=== PATIENT | female | born 1960 | race Caucasian/White ===

== ENCOUNTER 2020-01-14 10:09 | Emergency (ER) | payer BC ==
[2020-01-14] MEDS ORDERED: NORMAL SALINE 1000 ML 1,000 ML IV ONE (11:57)
[2020-01-14] MEDS ORDERED: DIPH/PERTUSS(ACELL)/TETANUS VAC/PF 0.5 ML SYR (>=10YO) IM ONE (11:58)
[2020-01-14] MEDS ORDERED: CEFTRIAXONE 1 GM/D5W RTU 1 GM/50 ML RTUPB IV ONE ×2 (11:58→12:15)
[2020-01-14] MEDS ORDERED: ONDANSETRON HCL INJ/PF 4 MG/2 ML SDV IV ONE (12:01)
[2020-01-14] MEDS ORDERED: MORPHINE SULFATE 10 MG/ML INJ IV ONE (12:01)
[2020-01-14] MEDS ORDERED: LIDOCAINE 1% INJ-PF (10 MG/ML) 30 ML SDV INJ ONE (12:08)
--- NOTE | 2020-01-14 12:37 | RADIOLOGY REPORT (SQ) ---
EXAM DESCRIPTION: CT HEAD WITHOUT IMAGES COMPLETED DATE/TIME: 01/14/2020 12:19 pm REASON FOR STUDY: accidental fall/headache COMPARISON: None. TECHNIQUE: Axial images acquired through the brain without intravenous contrast. Images reviewed wi th bone, brain and subdural windows. Additional sagittal and coronal reconstructions were generated. Images stored on PACS. All CT scanners at this facility use dose modulation, iterative reconstruction, and/or weight based d osing when appropriate to reduce radiation dose to as low as reasonably achievable (ALARA). [facility]: Dose Right [facility]: CareDose [facility]: Dose Right [facility]: Teradose 4D [facility]: [employer] RADIATION DOSE: CT Rad equipment meets quality standard of care and radiation dose reduction techniq ues were employed. CTDIvol: 53.2 mGy. DLP: 1203 mGy-cm. mGy. LIMITATIONS: None. FINDINGS: VENTRICLES: Normal size and contour. CEREBRUM: No masses. No hemorrhage. No midline shift. No evidence for acute infarction. Normal gra y/white matter differentiation. No areas of low density in the white matter. CEREBELLUM: No masses. No hemorrhage. No alteration of density. No evidence for acute infarction. EXTRAAXIAL SPACES: No fluid collections. No masses. ORBITS AND GLOBE: No intra- or extraconal masses. Normal contour of globe without masses. CALVARIUM: No fracture. PARANASAL SINUSES: No fluid or mucosal thickening. SOFT TISSUES: No mass or hematoma. OTHER: No other significant finding. IMPRESSION: NO ACUTE INTRACRANIAL IMAGING FINDINGS. EVIDENCE OF ACUTE STROKE: NO. COMMENT: Quality ID # [id number]: Final reports with documentation of one or more dose reduction techniques (e.g., Automated exposure control, adjustment of the mA and/or kV according to patient size, use of iterative reconstruction technique) TECHNICAL DOCUMENTATION: JOB ID: [id number] 2010 [employer]- All Rights Reserved Reading location - IP/workstation name: [email or web address]
--- NOTE | 2020-01-14 12:41 | RADIOLOGY REPORT (SQ) ---
EXAM DESCRIPTION: CT CERVICAL SPINE WITHOUT IMAGES COMPLETED DATE/TIME: 01/14/2020 12:19 pm REASON FOR STUDY: accidental fall COMPARISON: None. TECHNIQUE: Axial images acquired through the cervical spine without intravenous contrast. Images re viewed with lung, soft tissue and bone windows. Reconstructed coronal and sagittal MPR images review ed. Images stored on PACS. All CT scanners at this facility use dose modulation, iterative reconstruction, and/or weight based d osing when appropriate to reduce radiation dose to as low as reasonably achievable (ALARA). [facility]: Dose Right [facility]: CareDose [facility]: Dose Right [facility]: Teradose 4D [facility]: [employer] RADIATION DOSE: CT Rad equipment meets quality standard of care and radiation dose reduction techniq ues were employed. CTDIvol: 19.6 mGy. DLP: 373 mGy-cm. mGy. LIMITATIONS: None. FINDINGS: ALIGNMENT: Straightening of the normal cervical lordosis. MINERALIZATION: Normal. VERTEBRAL BODIES: No acute fracture or dislocation. Multilevel endplate change. DISCS: Multilevel disc height loss and endplate change. Posterior disc osteophyte complexes largest at C3-4 and C5-6 with resultant mild osseous canal narrowing. FACETS, LATERAL MASSES, POSTERIOR ELEMENTS: Multilevel facet arthropathy. No facet fracture or dislo cation. Moderate to severe osseous neural foraminal narrowing secondary to uncovertebral and facet h ypertrophy greatest at C5-6 and C6-7 on the right. HARDWARE: None in the spine. VISUALIZED RIBS: No fractures. LUNG APICES AND SOFT TISSUES: Unremarkable lungs. 1.3 cm isodense right thyroid nodule likely. OTHER: No other significant finding. IMPRESSION: Multilevel degenerative changes without evidence of acute bony abnormality of the cervic al spine. TECHNICAL DOCUMENTATION: JOB ID: [id number] Quality ID # [id number]: Final reports with documentation of one or more dose reduction techniques (e.g., Au tomated exposure control, adjustment of the mA and/or kV according to patient size, use of iterative reconstruction technique) 2010 [employer]- All Rights Reserved Reading location - IP/workstation name: [email or web address]
--- NOTE | 2020-01-14 13:16 | RADIOLOGY REPORT (SQ) ---
EXAM DESCRIPTION: ELBOW RIGHT OVER 2 VIEWS IMAGES COMPLETED DATE/TIME: 01/14/2020 12:58 pm REASON FOR STUDY: fall/open wound/pain COMPARISON: None. NUMBER OF VIEWS: Four views. TECHNIQUE: AP, lateral, and both oblique radiographic images acquired of the right elbow. LIMITATIONS: None. FINDINGS: MINERALIZATION: Normal. BONES: No acute fracture or dislocation. No worrisome bone lesions. Mild osteophytosis. JOINT: No effusion. SOFT TISSUES: No soft tissue swelling. No foreign body. OTHER: No other significant finding. IMPRESSION: No evidence of acute bony abnormality of the right elbow. Soft tissue defect and subcutaneous gas compatible with laceration. TECHNICAL DOCUMENTATION: JOB ID: [id number] 2010 [email or web address]- All Rights Reserved Reading location - IP/workstation name: [email or web address]
--- NOTE | 2020-01-14 13:16 | RADIOLOGY REPORT (SQ) ---
EXAM DESCRIPTION: ANKLE RIGHT COMPLETE IMAGES COMPLETED DATE/TIME: 01/14/2020 12:58 pm REASON FOR STUDY: fall/open wound medially/pain COMPARISON: None. NUMBER OF VIEWS: Three views. TECHNIQUE: AP, lateral, and oblique radiographic images acquired of the right ankle. LIMITATIONS: None. FINDINGS: MINERALIZATION: Decreased. BONES: No acute fracture or dislocation. No worrisome bone lesions. Superior and plantar calcaneal enthesophytes. Midfoot osteophytosis. JOINTS: No effusions. SOFT TISSUES: No soft tissue swelling. No foreign body. OTHER: No other significant finding. IMPRESSION: NEGATIVE STUDY OF THE RIGHT ANKLE. NO RADIOGRAPHIC EVIDENCE OF ACUTE INJURY. TECHNICAL DOCUMENTATION: JOB ID: [id number] 2010 [facility]- All Rights Reserved Reading location - IP/workstation name: [email or web address]
--- NOTE | 2020-01-14 13:19 | RADIOLOGY REPORT (SQ) ---
EXAM DESCRIPTION: FOOT RIGHT COMPLETE IMAGES COMPLETED DATE/TIME: 01/14/2020 12:58 pm REASON FOR STUDY: pain/fall COMPARISON: None. NUMBER OF VIEWS: Three views. TECHNIQUE: AP, lateral and oblique radiographic images acquired of the right foot. LIMITATIONS: None. FINDINGS: MINERALIZATION: Decreased. BONES: Cortical irregularity and periosteal reaction about the 3rd proximal phalanx suggestive of sub acute injury. No additional fracture. Plantar and superior calcaneal enthesophytes. JOINTS: No effusions. SOFT TISSUES: No soft tissue swelling. No foreign body. OTHER: No other significant finding. IMPRESSION: 1. Cortical irregularity and periosteal reaction about the 3rd proximal phalanx suggest brandon of subacute injury. Recommend correlation with point tenderness. 2. No other evidence of acute bony abnormality of the right foot. TECHNICAL DOCUMENTATION: JOB ID: [id number] 2010 [employer]- All Rights Reserved Reading location - IP/workstation name: [email or web address]
--- NOTE | 2020-01-14 13:20 | RADIOLOGY REPORT (SQ) ---
EXAM DESCRIPTION: TIBIA FIBULA RIGHT IMAGES COMPLETED DATE/TIME: 01/14/2020 12:59 pm REASON FOR STUDY: fall pain/open wound COMPARISON: None. NUMBER OF VIEWS: Two views. TECHNIQUE: Two radiographic images acquired of the right tibia and fibula to include the knee and an kle in at least one projection. LIMITATIONS: None. FINDINGS: MINERALIZATION: Normal. BONES: No acute fracture or dislocation. No worrisome bone lesions. SOFT TISSUES: No obvious swelling or foreign body. OTHER: No other significant finding. IMPRESSION: NEGATIVE STUDY OF THE RIGHT TIBIA AND FIBULA. NO RADIOGRAPHIC EVIDENCE OF ACUTE INJURY. TECHNICAL DOCUMENTATION: JOB ID: [id number] 2010 [employer]- All Rights Reserved Reading location - IP/workstation name: [email or web address]
--- NOTE | 2020-01-14 13:48 | RADIOLOGY REPORT (SQ) ---
EXAM DESCRIPTION: ACUTE ABDOMEN SERIES IMAGES COMPLETED DATE/TIME: 01/14/2020 1:24 pm REASON FOR STUDY: trauma/fall COMPARISON: None. NUMBER OF VIEWS: Three views. TECHNIQUE: Frontal chest, supine abdomen and upright/decubitus abdomen radiographic images acquired. LIMITATIONS: None. FINDINGS: CHEST: Lungs clear of infiltrates. FREE AIR: None. No abnormal gas collections. BOWEL GAS PATTERN: Nonobstructive pattern. No dilated loops or air fluid levels. CALCIFICATIONS: No suspicious calcifications. HARDWARE: None in the abdomen. SOFT TISSUES: No gross mass or suggestion of organomegaly. BONES: No acute fracture. No worrisome bone lesions. OTHER: No other significant finding. IMPRESSION: No evidence of acute intrathoracic or intra-abdominal/pelvic process. TECHNICAL DOCUMENTATION: JOB ID: [id number] 2010 [employer]- All Rights Reserved Reading location - IP/workstation name: [email or web address]
[2020-01-14 13:56] LABS: ABSOLUTE BASOPHILS # (AUTO) 0.1 10^3/uL (0.0-0.2); ABSOLUTE EOSINOPHILS # (AUTO) 0.2 10^3/uL (0.0-0.6); ABSOLUTE LYMPHOCYTES (AUTO) 2.9 10^3/uL (0.5-4.7); ABSOLUTE MONOCYTES (AUTO) 0.5 10^3/uL (0.1-1.4); ABSOLUTE NEUT (AUTO) 6.1 10^3/uL (1.7-8.2); BASOPHILS % (AUTO) 1.3 % (0-2); EOSINOPHILS % (AUTO) 1.6 % (0-6); HEMATOCRIT 40.8 % (36.0-47.0); HEMOGLOBIN 14.1 g/dL (12.0-15.5); LYMPHOCYTES % (AUTO) 30.1 % (13-45); MEAN CORPUSCULAR HEMOGLOBIN 30.8 pg (27.0-33.4); MEAN CORPUSCULAR HGB CONC 34.5 g/dL (32.0-36.0); MEAN CORPUSCULAR VOLUME 89 fl (80-97); MONOCYTES % (AUTO) 4.6 % (3-13); PLATELET COUNT 303 10^3/uL (150-450); RED BLOOD COUNT 4.58 10^6/uL (3.72-5.28); SEGMENTED NEUTROPHILS % (AUTO) 62.4 % (42-78); TOTAL CELLS COUNTED % (AUTO) 100 %; WHITE BLOOD COUNT 9.7 10^3/uL (4.0-10.5)
[2020-01-14 14:50] VITALS: BP 135/82
[2020-01-14 15:28] LABS: ALBUMIN 3.9 g/dL (3.5-5.0); ALKALINE PHOSPHATASE 60 U/L (38-126); ANION GAP 6 (5-19); ASPARTATE AMINO TRANSFERASE 22 U/L (14-36); BILIRUBIN,DIRECT 0.3 mg/dL (0.0-0.4); BILIRUBIN,TOTAL 0.4 mg/dL (0.2-1.3); BLOOD UREA NITROGEN 15 mg/dL (7-20); CALCIUM 8.3 mg/dL (8.4-10.2); CARBON DIOXIDE 26 mmol/L (22-30); CHLORIDE 108 mmol/L (98-107); CREATINE KINASE 60 U/L (30-135); GLUCOSE 108 mg/dL (75-110); POTASSIUM 4.1 mmol/L (3.6-5.0); TOTAL PROTEIN 7.1 g/dL (6.3-8.2)
[2020-01-14 15:40] LABS: ALCOHOL < 10 mg/dL (NONE DETECTED)
--- NOTE | 2020-01-14 15:52 | ER Document Report ---
Entered by YU CLEMENT SCRIBE 01/14/20 1146 Acting as scribe for:EDER RICKETTS MD ED General - General Chief Complaint: Fall Stated Complaint: FELL - HEAD PAIN/ARM INJURY Information source: Patient Notes: This 59 year old female patient presents to the emergency department today with a mechanical fall this morning. Patient states she was in the shower this morning and got out to answer her phone. Patient states when getting back into the shower she slipped and landed on the right side of her body. Patient reports hitting her head and denies vision changes or loss of consciousness. Patient reports pain in her right elbow, right ankle, neck, and a headache. Patient states she was nauseous after the fall but it is now relieved. Denies vomiting, back pain, or abdominal pain. Patient states she is on metoprolol for her HTN and is not on any blood thinners. - Related Data Allergies/Adverse Reactions: ragweed pollen Allergy (Verified 01/14/20 10:31) Home Medications: Metoprolol Past Medical History - General Information source: Patient - Social History Smoking Status: Unknown if Ever Smoked Family History: Reviewed & Not Pertinent Patient has homicidal ideation: No - Past Medical History Cardiac Medical History: Reports: Hx Hypertension Review of Systems - Review of Systems Constitutional: No symptoms reported EENT: See HPI, Other - no vision changes Cardiovascular: No symptoms reported Respiratory: No symptoms reported Gastrointestinal: See HPI, Nausea. denies: Abdominal pain, Vomiting Genitourinary: No symptoms reported Female Genitourinary: No symptoms reported Musculoskeletal: See HPI, Neck pain, Other - R ankle, R elbow pain. denies: Back pain Skin: No symptoms reported Hematologic/Lymphatic: No symptoms reported Neurological/Psychological: See HPI, Headaches. denies: Lost consciousness -: Yes All other systems reviewed and negative Physical Exam - Vital signs Vitals: Temp Pulse Resp BP Pulse Ox 97.6 F 60 16 148/78 H 99 01/14/20 10:34 01/14/20 10:34 01/14/20 10:34 01/14/20 10:34 01/14/20 10:34 - General General appearance: Appears well, Alert - HEENT Head: Normocephalic, Atraumatic Eyes: Normal Pupils: PERRL Neck: Posterior cervical chain - Tender with palpation - Respiratory Respiratory status: No respiratory distress Chest status: Nontender Breath sounds: Normal Chest palpation: Normal - Cardiovascular Rhythm: Regular Heart sounds: Normal auscultation, S1 appreciated, S2 appreciated Murmur: No - Abdominal Inspection: Normal, Other - Soft Distension: No distension Bowel sounds: Normal Tenderness: Nontender - Back Back: Normal, Nontender. No: Wounds - Extremities Notes: x5 cm linear diagonal laceration on the right elbow. Normal ROM and able to flex, extend, rotate elbow. No deformity. Puncture wound on the right lateral ankle. No deformity and no active bleeding. Normal ROM. - Neurological Neuro grossly intact: Yes Cognition: Normal Orientation: AAOx4 [place] Coma Scale Eye Opening: Spontaneous [place] Coma Scale Verbal: Oriented [place] Coma Scale Motor: Obeys Commands [place] Coma Scale Total: 15 Speech: Normal Motor strength normal: LUE, RUE, LLE, RLE Sensory: Normal - Psychological Associated symptoms: Normal affect, Normal mood - Skin Skin Temperature: Warm Skin Moisture: Dry Skin Color: Normal Course - Re-evaluation Re-evalutation: 01/14/20 15:25 Patient is feeling comfortable at this time not showing any signs of distress patient has had scans and x-rays and laboratory work evaluation. Also noted procedure to this who sutured her elbow laceration on the right. Patient tolerated all this well and is pending laboratory results at this time. - Vital Signs Vital signs: Temp Pulse Resp BP Pulse Ox 97.5 F 59 L 16 135/82 H 95 01/14/20 14:49 01/14/20 14:49 01/14/20 14:49 01/14/20 14:49 01/14/20 14:49 01/14/20 15:26 Vital signs stable. - Laboratory Result Diagrams: 01/14/20 12:30 01/14/20 14:59 Laboratory results interpreted by me: 01/14/20 14:59 Chloride 108 H Calcium 8.3 L Remaining chemistry labs reported showing borderline low calcium 8.3 chloride 108. Laboratory 01/14/20 01/14/20 01/14/20 12:30 12:30 14:59 WBC 9.7 RBC 4.58 Hgb 14.1 Hct 40.8 MCV 89 MCH 30.8 MCHC 34.5 RDW 14.0 Plt Count 303 Lymph % (Auto) 30.1 [place] % (Auto) 4.6 Eos % (Auto) 1.6 Baso % (Auto) 1.3 Absolute Neuts (auto) 6.1 Absolute Lymphs (auto) 2.9 Absolute Monos (auto) 0.5 Absolute Eos (auto) 0.2 Absolute Basos (auto) 0.1 Seg Neutrophils % 62.4 Sodium Cancelled 139.5 Potassium Cancelled 4.1 Chloride Cancelled 108 H Carbon Dioxide Cancelled 26 Anion Gap Cancelled 6 BUN Cancelled 15 Creatinine Cancelled 0.62 Est GFR ( Amer) Cancelled > 60 Est GFR (Non-Af Amer) Cancelled Est GFR (MDRD) Non-Af Cancelled > 60 Glucose Cancelled 108 Calcium Cancelled 8.3 L Total Bilirubin Cancelled 0.4 Direct Bilirubin Cancelled 0.3 Neonat Total Bilirubin Cancelled Not Reportable Neonat Direct Bilirubin Cancelled Not Reportable Neonat Indirect Bili Cancelled Not Reportable AST Cancelled 22 ALT Cancelled 18 Alkaline Phosphatase Cancelled 60 Creatine Kinase Cancelled 60 Total Protein Cancelled 7.1 Albumin Cancelled 3.9 Lipase Cancelled 155.0 EGFR Cancelled Serum Alcohol Cancelled < 10 - Diagnostic Test Radiology reviewed: Image reviewed, Reports reviewed Radiology results interpreted by me: 01/14/20 13:[address] 01/14/20 12:02 IMPRESSION: NO ACUTE INTRACRANIAL IMAGING FINDINGS. EVIDENCE OF ACUTE STROKE: NO. Cervical Spine CT 01/14/20 12:03 IMPRESSION: Multilevel degenerative changes without evidence of acute bony abnormality of the cervical spine. Elbow X-Ray 01/14/20 12:04 IMPRESSION: No evidence of acute bony abnormality of the right elbow. Soft tissue defect and subcutaneous gas compatible with laceration. Acute Abdomen Series 01/14/20 12:05 IMPRESSION: No evidence of acute intrathoracic or intra-abdominal/pelvic process. Tibia/Fibula X-Ray 01/14/20 12:05 IMPRESSION: NEGATIVE STUDY OF THE RIGHT TIBIA AND FIBULA. NO RADIOGRAPHIC EVIDENCE OF ACUTE INJURY. Ankle X-Ray 01/14/20 12:06 IMPRESSION: NEGATIVE STUDY OF THE RIGHT ANKLE. NO RADIOGRAPHIC EVIDENCE OF ACUTE INJURY. Foot X-Ray 01/14/20 12:07 IMPRESSION: 1. Cortical irregularity and periosteal reaction about the 3rd proximal phalanx suggestive of subacute injury. Recommend correlation with point tenderness. 2. No other evidence of acute bony abnormality of the right foot. Procedures - Laceration/Wound Repair Right Elbow Wound length (cm): 5 Wound's Depth, Shape: Linear Laceration pre-procedure: Sterile PPE donned, Sterile drapes applied, Shur-Clens applied Anesthetic type: 1% Lidocaine Volume Anesthetic (mLs): 4 Wound explored: Clean, No foreign body removed Wound Debrided: Minimal Wound Repaired With: Sutures Suture Size/Type: Vicryl, 4:0 Number of Sutures: 5 Post-procedure wound care: Sterile dressing applied Post-procedure NV exam normal: Yes Complications: No Discharge - Discharge Clinical Impression: Accidental fall, Head ache, Neck muscle strain, Elbow laceration, Sprained ankle Condition: Stable Disposition: HOME, SELF-CARE Instructions: Laceration Care ([facility]), Prophylactic Antibiotic ([facility]), Sprained Ankle ([facility]), Tetanus Immunization Given ([facility]) Prescriptions: Ibuprofen [Ibu] 800 mg PO TID PRN 7 Days #21 tablet PRN Reason: prn pain/swelling/fever Cephalexin Monohydrate [Keflex 500 mg Capsule] 500 mg PO BID 7 Days #14 capsule I personally performed the services described in the documentation, reviewed and edited the documentation which was dictated to the scribe in my presence, and it accurately records my words and actions.
== END 2020-01-14 16:03 | disposition home or self-care (01) ==
LOC: ER 10:09
DX: S51.011A Laceration without foreign body of right elbow, initial encounter (principal); S16.1XXA Strain of muscle, fascia and tendon at neck level, initial encounter; S93.401A Sprain of unspecified ligament of right ankle, initial encounter; S91.031A Puncture wound without foreign body, right ankle, initial encounter; R51 Headache; W18.2XXA Fall in (into) shower or empty bathtub, initial encounter; Y93.89 Activity, other specified; M47.812 Spondylosis without myelopathy or radiculopathy, cervical region; R11.0 Nausea; I10 Essential (primary) hypertension; Z79.899 Other long term (current) drug therapy; Z91.048 Other nonmedicinal substance allergy status
CPT/HCPCS: 99285; 90471; 96375; 96365; 36415; 80307; 82550; 83690; 85025; 80053; 74022; 73610; 73080; 73630; 73590; 70450; 72125; 90715; 12002; J3490; J2270; J2405; J7030; J0696